=== PATIENT | male | born 1955 | race Caucasian/White ===

== ENCOUNTER 2017-05-10 01:31 | Inpatient (IN) | payer OTHER ==
[2017-05-10 01:30] VITALS: O2SAT 94
[2017-05-10] MEDS ORDERED: IOHEXOL 350 MG/ML 10 ML VIAL (for RAD DIAG) IVCONTRAST ONE (01:32)
[2017-05-10] MEDS ORDERED: PROPOFOL 1000 MG/100 ML INJ 100 ML ONE (01:43)
[2017-05-10] MEDS ORDERED: MIDAZOLAM HCL 5 MG/ML VIAL (1 ML) ONE ×4 (01:49→02:34)
[2017-05-10 01:50] VITALS: O2SAT 98
[2017-05-10 01:58] LABS: AUTOMATED NEUTROPHIL # 19.4 TH/MM3 (1.8-7.7); BASOPHIL # 0.1 TH/MM3 (0-0.2); BASOPHIL % 0.4 % (0.0-2.0); EOSINOPHIL # 0.1 TH/MM3 (0-0.4); EOSINOPHIL % 0.5 % (0.0-4.0); HEMATOCRIT 42.7 % (39.0-51.0); HEMO FLAGS DIFF FINAL; LYMPH % 10.3 % (9.0-44.0); LYMPHOCYTE # 2.4 TH/MM3 (1.0-4.8); MEAN CELL VOLUME 92.7 FL (80.0-100.0); MEAN CORPUSCULAR HEMOGLOBIN 33.3 PG (27.0-34.0); MEAN CORPUSCULAR HGB CONC 35.9 % (32.0-36.0); MONO % 5.4 % (0.0-8.0); NEUT % 83.4 % (16.0-70.0); PLATELET COUNT 218 TH/MM3 (150-450); RED CELL DISTRIBUTION WIDTH 13.4 % (11.6-17.2); WHITE BLOOD COUNT 23.2 TH/MM3 (4.0-11.0)
[2017-05-10 01:59] LABS: I-STAT POTASSIUM 3.6 MMOL/L (3.5-4.9)
[2017-05-10 02:08] LABS: INTERNATIONAL NORMALIZED RATIO 1.2 RATIO; PROTHROMBIN TIME - PATIENT 13.1 SEC (9.8-11.6)
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
[2017-05-10 02:20] VITALS: O2SAT 92
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
[2017-05-10] MEDS ORDERED: ROCURONIUM INJ 50 MG/5 ML VIAL ONE (02:32)
[2017-05-10] MEDS ORDERED: NOREPINEPHRINE-DEXTROSE DRIP 250 ML IV ONE ×2 (02:34→03:15)
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
[2017-05-10] MEDS ORDERED: ENALAPRILAT 1.25 MG/ML VIAL IV PUSH PRN (02:45)
[2017-05-10] MEDS ORDERED: CHLORHEXIDINE GLUCONATE 2 % 1 PACK (2 CLOTHS) TOP PRN (02:45)
[2017-05-10] MEDS ORDERED: ONDANSETRON HCL 4 MG/2 ML VIAL IV PUSH PRN (02:45)
[2017-05-10] MEDS ORDERED: MAGNESIUM HYDROXIDE SUSP 30 ML CUP PO PRN (02:45)
[2017-05-10] MEDS ORDERED: MISCELLANEOUS NURSING INFORMATION XX SCH (02:45)
[2017-05-10] MEDS ORDERED: SODIUM CHLORIDE 0.9% FLUSH 10 ML FLUSH IV FLUSH PRN (02:45)
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
[2017-05-10] MEDS ORDERED: GENTAMICIN 80 MG PREMIX 100 ML IV ONE (03:00)
[2017-05-10] MEDS ORDERED: PHENYLEPHRINE HCL 10 MG/ML VIAL ONE ×3 (03:05→03:23)
[2017-05-10 03:29] LABS: BLOOD GAS BASE EXCESS -11.8 mmol/L (-2-2); BLOOD GAS CARBOXYHEMOGLOBIN 1.3 % (0-4); BLOOD GAS HCO3 16 mmol/L (22-26); BLOOD GAS O2 HGB SATURATION 92 % (90-100); BLOOD GAS OXYGEN CONTENT 13.2 Vol % (12.0-20.0); BLOOD GAS PCO2 49 mmHg (38-42); BLOOD GAS PO2 98 mmHg (61-120); BLOOD GAS TOTAL HGB 10.1 G/DL (12.0-16.0); TEMP CORR TO 98.6
[2017-05-10 03:30] LABS: CRITICAL VALUE YES; OXYGEN DEVICE VENT
[2017-05-10 03:31] LABS: DRAW SITE ART LINE; FIO2 100 %; STAT YES; ULNAR PULSE PRESENT; VENT SETTINGS SEE COMMENTS
[2017-05-10] MEDS ORDERED: SODIUM CHLOR 0.9% 250 ML INJ 250 ML IV ONE (03:45)
[2017-05-10] MEDS ORDERED: CHLORHEXIDINE GLUCONATE 2 % 1 PACK (2 CLOTHS) TOP SCH (04:00)
[2017-05-10] MEDS ORDERED: TRANEXAMIC ACID 1 GM PRIOR TO PROCEDURE IV ONE ×2 (04:15)
[2017-05-10] MEDS ORDERED: MULTIVITAMIN INJ 10 ML, THIAMINE INJ 100 MG, FOLIC ACID INJ 1 MG in SODIUM CHLORID 0.9%... IV SCH (04:45)
[2017-05-10] MEDS ORDERED: PANTOPRAZOLE SODIUM 40 MG VIAL IVP SCH (06:00)
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
--- NOTE | 2017-05-10 07:15 | PD.PROCEDR ---
Procedure Note Procedure DATE: 05/10/17 CENTRAL LINE PLACEMENT: Right femoral CVL. INDICATION: Central venous access CONSENT Procedure was done emergently as patient has no family contact and is in profound shock DESCRIPTION OF THE PROCEDURE The patient was placed in supine position. The skin was cleansed with Chloraprep. Additional barrier precautions included large sterile drape, sterile gloves, sterile gown, face mask, and hat. 1 % lidocaine was used for local anesthesia. Was attempting to place art line and had venous stick so proceeded with central venous access. . The guide wire was advanced and the tract was dilated. Using Seldinger technique a 20 gauge12 cm single lumen catheter was advanced. The guide wire was removed. There was good return of dark venous blood and flushed easily with saline. The central line was secured with 2.0 silk. A sterile dressing with antibiotic disc was applied. ESTIMATED BLOOD LOSS: Minimal COMPLICATIONS: No apparent complications. Nila Ierne MD May 10, 2017 07:15
--- NOTE | 2017-05-10 07:18 | PD.PROCEDR ---
Procedure Note Procedure DATE: 05/10/17 PROCEDURE: Right femoral arterial catheter placement INDICATION: Hemorrhagic shock DETAILS OF PROCEDURE The patient was placed in supine position. The skin was cleansed with Chloraprep. Additional barrier precautions included large sterile drape, sterile gloves, sterile gown, face mask, and hat. 1% lidocaine was used for local anesthesia. Under direct ultrasound guidance and on the first attempt, the artery was accessed with an introducer needle. The guide wire was advanced. Using Seldinger technique 20 gauge 12 cm femoral arterial catheter was placed. The guide wire was removed. The catheter was connected to a transducer line and flushed with saline. The video monitor displayed normal arterial wave forms. The catheter was secured with 2-0 silk. A sterile dressing with antibiotic disc was applied. ESTIMATED BLOOD LOSS: minimal COMPLICATIONS: None Nila Irene MD May 10, 2017 07:18
--- NOTE | 2017-05-10 07:23 | PD.PROCEDR ---
Procedure Note Procedure Date: 05/10/17 Procedure: Cardiopulmonary resuscitation Indication: PEA cardiac arrest Details of procedure: Pt developed PEA cardiac arrest, then asystole. Per ACLS protocol pt received CPR, manual bag-valve ventilation via ETT, epinephrine x9, CaCl2 1 amp, bicarb x1 amp. Transfusion of 6 units PRBC, [address] Garay placed L chest tube and L Cordis. After 40 minutes resuscitation unable to restore spontaneous circulation. Pt was pronounced at 04:32. Nila Irene MD May 10, 2017 07:23
--- NOTE | 2017-05-10 07:23 | PD.PROCEDR ---
Procedure Note Procedure Procedure: Right chest tube placement Indication: Right Hemopneumothorax. Patient with shock, absence of sliding lung sign on pulmonary ultrasound c/w hemopneumothorax Details of procedure: Procedure was performed emergently as patient in extremis and no family contact available, pt not capacitated for consent.. The patient was laid supine. The lateral chest wall was cleaned with ChloraPrep x3. Regional sterile drapes were applied. 1% lidocaine was used for local anesthesia and injected into the subcutaneous and deep muscle tissues. A 2 cm skin incision was made with a scalpel blade. A hemostat was used for blunt dissection. The hemostat was entered into the pleural space superior to the rib with release of ~100 ml of dark red blood. I explored the wound with my finger. A size 32 [place]ian chest tube was inserted with a Maura clamp into the pleural cavity and directed toward the apex. 2-0 silk was used to close the wound and to secure the chest tube. A sterile Vaseline gauze dressing was applied. The chest tube was connected to a Pleur-evac drainage system -40 cm suction. There was initially 600 mL of dark blood output into to Pleur-evac. Subsequently patient coded and CPR initiated and when pronounced had 1100 bloody output total. Nila Irene MD May 10, 2017 07:23
[2017-05-10] MEDS ORDERED: DOCUSATE SODIUM 100 MG CAP PO SCH (09:00)
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
== END 2017-05-10 12:00 | disposition expired | DRG 963 ==
LOC: NEPI 01:31 → NEDA 02:20 → EDBD 02:20 → N03A 02:28
PROVIDERS: ADMIT Surgery; ATTEND Surgery
PROC: 0BH17EZ Insertion of Endotracheal Airway into Trachea, Via Natural or Artificial Opening (ICD-10-PCS; principal; 2017-05-10)
PROC: 5A1935Z Respiratory Ventilation, Less than 24 Consecutive Hours (ICD-10-PCS; 2017-05-10)
PROC: 5A12012 Performance of Cardiac Output, Single, Manual (ICD-10-PCS; 2017-05-10)
PROC: 06HM33Z Insertion of Infusion Device into Right Femoral Vein, Percutaneous Approach (ICD-10-PCS; 2017-05-10)
PROC: 0W9930Z Drainage of Right Pleural Cavity with Drainage Device, Percutaneous Approach (ICD-10-PCS; 2017-05-10)
PROC: 30233K1 Transfusion of Nonautologous Frozen Plasma into Peripheral Vein, Percutaneous Approach (ICD-10-PCS; 2017-05-10)
PROC: 30233N1 Transfusion of Nonautologous Red Blood Cells into Peripheral Vein, Percutaneous Approach (ICD-10-PCS; 2017-05-10)
DX: S27.1XXA Traumatic hemothorax, initial encounter (principal); J96.01 Acute respiratory failure with hypoxia; S32.401A Unspecified fracture of right acetabulum, initial encounter for closed fracture; I46.9 Cardiac arrest, cause unspecified; S52.302B Unspecified fracture of shaft of left radius, initial encounter for open fracture type I or II; S52.202B Unspecified fracture of shaft of left ulna, initial encounter for open fracture type I or II; S52.612B Displaced fracture of left ulna styloid process, initial encounter for open fracture type I or II; S22.43XA Multiple fractures of ribs, bilateral, initial encounter for closed fracture; S27.322A Contusion of lung, bilateral, initial encounter; E87.2 Acidosis; R57.8 Other shock; V49.49XA Driver injured in collision with other motor vehicles in traffic accident, initial encounter; Y92.410 Unspecified street and highway as the place of occurrence of the external cause
CPT/HCPCS: 31500; 32551; 36430; 36556; 70450; 71010; 71260; 72125; 72170; 73090; 74177; 82435; 82565; 82805; 82947; 84132; 84295; 84520; 85025; 85610; 85730; 86850; 86900; 86901; 86920; 86927; 90471; 92950; 96374; 96375; 96376; 99291; A0431-QM-SH; A0436-QM-SH; G0390; J2250; J2370; J3010; L0150; P9016; P9017; P9035; Q9967